=== PATIENT | female | born 1985 ===

== ENCOUNTER 2017-11-30 17:38 | Emergency (ER) | payer BC ==
[2017-11-30 18:13] VITALS: BMI 24.9
[2017-11-30 23:40] VITALS: BP 103/62; PULSE 73; RESP 18; TEMP 98.7
== END 2017-11-30 19:39 | disposition home or self-care (01) ==
LOC: C.EROB 17:38
DX: O26.853 Spotting complicating pregnancy, third trimester (principal); Z3A.33 33 weeks gestation of pregnancy